=== PATIENT | female | born 1995 | race Caucasian/White ===

== ENCOUNTER 2024-09-15 18:44 | Emergency (ER) | payer OTHER, SELFPAY ==
[2024-09-15 18:47] VITALS: BP 118/70; PULSE 62; RESP 18; TEMP 36.6; O2SAT 99; BMI 21.2
[2024-09-15] MEDS: PROPARACAINE 0.5% OPHTH SOL 1 DROPS EYE-LEFT (19:16)
[2024-09-15] MEDS: FLUORESCEIN 1 MG STRIP EYE-LEFT (19:17)
--- NOTE | 2024-09-15 19:29 | ED.EYEPROB ---
HPI - Eye Problem General Chief complaint: Eye Problems Stated complaint: Metal fragment in lft eye Time Seen by Provider: 09/15/24 19:29 Source: patient Mode of arrival: Ambulatory History of Present Illness HPI Narrative: 29-year-old female without any significant past medical history presents to the emergency department for possible metal foreign body in eye. She states that she works at [employer] states that she was wearing goggles but feels like there might be a piece of metal that got into her left eye. States that they did wash it out used fluorescein and noted that there was possible metallic foreign body in the eye, therefore was sent to the ER for further assessment treatment. She denies any actual visual loss denies any visual pain. Not on any blood thinners, patient's tetanus was updated Prior to arrival at her work. She denies any other symptoms Related Data Previous Rx's Medication Instructions Recorded erythromycin 5 mg/gram (0.5 %) eye 0.5 inch EYE-LEFT Q6H 5 days #3.5 09/15/24 ointment grams Allergies Allergy/AdvReac Type Severity Reaction Status Date / Time No Known Drug Allergies Allergy Verified 09/15/24 18:47 Review of Systems Review of Systems Narrative: General: Denies fever, chills, weight loss HEENT: positive left eye foreign body sensationDenies headache, eye drainage, head trauma, sore throat, voice change Cardiovascular: Denies any chest pain, palpitations, tachycardia Respiratory: Denies any shortness of breath, cough, wheeze, stridor GI/: Denies any abdominal pain, nausea, vomiting, diarrhea, bright red blood per rectum, melanotic stools, urinary frequency, urinary retention, dysuria, hematuria MSK: Denies any joint pain, muscle pains, swelling Skin: Denies any rashes, lesions, discoloration Neuro: Denies any headache, lightheadedness, dizziness, fainting, weakness Psych: Denies SI/HI Patient History Social History Smoking Status: Never smoker Smoking Status: Never smoker Exam Narrative Exam Narrative: General: Cooperative, comfortable, well-developed, not in acute distress HEENT: Normocephalic, atraumatic, PERRLA, patient with corneal abrasion noted to the left eye not involving the pupil, there was no obvious foreign body noted, patient's visual acuity 20/20 with glasses which is her baseline, negative Shanique sign Neck: Active full range of motion, atraumatic Chest: Normal to inspection, negative crepitus, no overlying erythema ecchymosis Respiratory: Normal respiratory effort, not in acute respiratory distress, clear to auscultation bilaterally negative cough, wheeze, tachypnea, rhonchi, rales Cardiology: Regular rate rhythm negative gallop, murmur, rubs GI/: Normal to inspection, soft, nonrigid, no tenderness to palpation, exam deferred MSK: Full range of active range of motion of all 4 extremities, atraumatic Skin: No rashes lesions noted Neuro: Alert awake oriented x3, moves all 4 extremities spontaneously, cranial nerves intact, able to answer all questions appropriately follows commands appropriately Psych: Cooperative, negative suicidal or homicidal ideations Initial Vital Signs Initial Vital Signs: Vital Signs Temperature 97.8 F 09/15/24 18:47 Pulse Rate 62 09/15/24 18:47 Respiratory Rate 18 09/15/24 18:47 Blood Pressure 118/70 09/15/24 18:47 Pulse Oximetry 99 09/15/24 18:47 Oxygen Delivery Method Room Air 09/15/24 18:47 Course Orders Ordered: Discontinued Medications Fluorescein Sodium (Fluorescein 1 Mg Strip) 1 mg EYE-LEFT NOW ONE Stop: 09/15/24 18:57 Last Admin: 09/15/24 19:17 Dose: 1 mg Documented By: [facility] Proparacaine HCl (Proparacaine 0.5% Ophth Prisca) 1 drops EYE-LEFT NOW ONE Stop: 09/15/24 18:57 Last Admin: 09/15/24 19:16 Dose: 1 drop Documented By: [facility] Vital Signs Vital signs: Vital Signs - 8 hr 09/15/24 18:47 Temperature 97.8 F Pulse Rate 62 Respiratory Rate 18 Blood Pressure 118/70 Pulse Oximetry 99 Oxygen Delivery Method Room Air MDM - Eye Problem Differential Diagnosis Differential diagnosis: Likely corneal abrasion, hyphema, periorbital cellulitis and ruptured globe MDM Narrative Medical decision making narrative: 29-year-old female up-to-date on tetanus presents for possible foreign body left eye, she states that she was working at the [employer] was wearing her goggles but felt like something got in her left eye. She states that she went to the medical area there had her eyes thoroughly washed but states that they believe there might be a foreign body in the eye and was sent into the ED for further evaluation. On exam here there is a small corneal abrasion noted to the left eye in the 8 o clock region no obvious foreign body noted, eyelids were everted no foreign bodies noted did irrigate eyes with saline here in the emergency department. Patient was instructed to follow up with Ophthalmology in the next 24-48 hours for repeat exam of the eye, she will be started on erythromycin eye ointment for corneal abrasion she verbalized understanding of this and agrees to being discharged home with outpatient follow up Discharge Plan Departure Patient Disposition: Home Clinical Impression: Corneal abrasion Instructions: DI for Corneal Abrasion Activity Restrictions/Additional Instructions: please follow up with Ophthalmology in the next 24-48 hours Please read the discharge instructions sheet carefully and bring all papers to all doctor follow-up visits, as it may contain information that your doctor may want to see. Disease processes change and evolve, if your symptoms worsen or if you develop any new symptoms that are concerning to you please return for evaluation. Your evaluation today does not show any evidence of any life-threatening/serious illnesses requiring admission to the hospital or surgery. Please follow-up with your doctor for re-evaluation in approximately 1 day. Seek immediate medical attention for any worrisome symptoms. *If you do not have a primary care provider please contact the [facility] Resource line at [phone]. They will ask some questions about your medical history and help get you set up with a doctor in the community. Prescriptions: New erythromycin 5 mg/gram (0.5 %) ointment 0.5 inch EYE-LEFT Q6H 5 Days Qty: 3.5 0RF Referrals: Kanwal Gomez MD [Physician] - As soon as possible Miscellaneous,MD Shamika [Primary Care Provider] - Stand Alone Forms: Patient Portal/API/Survey
[2024-09-15] MEDS: ERYTHROMYCIN OPHTH 1 GM OINT 1 APPLIC EYE-LEFT (20:13)
[2024-09-15 20:59] VITALS: BP 105/56; PULSE 65; RESP 16; O2SAT 99
== END 2024-09-15 21:00 | disposition home or self-care (01) ==
PROVIDERS: Emergency Provider Student in an Organized Health Care Education/Training Program
DX: S05.02XA Injury of conjunctiva and corneal abrasion without foreign body, left eye, initial encounter (principal); W44.G9XA Other non-organic objects entering into or through a natural orifice, initial encounter; Y92.89 Other specified places as the place of occurrence of the external cause; Y99.0 Civilian activity done for income or pay
CPT/HCPCS: 99282